=== PATIENT | male | born 1990 | race Caucasian/White ===

== ENCOUNTER 2024-03-26 21:32 | Emergency (ER) | payer MEDICAID, SELFPAY ==
[2024-03-26 21:40] VITALS: PULSE 93; O2SAT 96; BMI 26.9
[2024-03-26 21:44] VITALS: BP 142/89; PULSE 78; RESP 20; TEMP 36.6; O2SAT 97
--- NOTE | 2024-03-26 22:15 | PD.EDRME ---
Rapid Medical Screening Exam RME Arrival date/time: 03/26/24 21:32 Chief Complaint: Fall Time Seen by Provider: 03/26/24 22:15 Vital signs: Vital Signs Temperature 97.8 F 03/26/24 21:44 Pulse Rate 78 03/26/24 21:44 Respiratory Rate 20 03/26/24 21:44 Blood Pressure 142/89 H 03/26/24 21:44 Pulse Oximetry (%) 97 03/26/24 21:44 Oxygen Delivery Method Room Air 03/26/24 21:44 RME Narrative: 34yo male with a history of seizures BIBA from home presents to the ED for a ground-level fall. Per EMS, patient hit a corner when he was in his wheelchair and fell out of his wheelchair. EMS states the fall was witnessed and the patient hit his head, but they denied any LOC. Patient complains of all over body pain. Of note, the patient is on hospice.
[2024-03-26] MEDS: LIDOCAINE 1% W/EPI 1:100K 20 ML VIAL INFL (22:54)
--- NOTE | 2024-03-26 23:35 | PD.RESPROC ---
Procedures Procedure Date / Time 03/26/24 2335 Procedure Narrative Procedure Narrative: Laceration Repair Procedure Note Procedure Name: Laceration Repair Indication: Reduce risk of infection Location: Right eyebrow Pre-Procedure Diagnosis: Laceration Post-Procedure Diagnosis: Repaired Laceration Informed consent was obtained before procedure started. PROCEDURE: The appropriate timeout was taken. The area was prepped and draped in the usual sterile fashion. Local anesthesia was achieved using 7cc of Xylocaine/Lidocaine 1%. The wound was copiously irrigated. Four 3-0 Nylon interrupted sutures were placed. Estimated blood loss was less than 0.5 mL. A dressing was applied to the area and anticipatory guidance, as well as standard post-procedure care, was explained. Return precautions are given.?The patient tolerated the procedure well without complications. Follow-up visit set for suture removal and evaluation of the laceration. Plan of care discussed with attending Richy Jimenez M.D. PGY2
--- NOTE | 2024-03-26 23:40 | EDNOTE_ITS ---
ED General RME/HPI General Chief complaint: Fall Stated complaint: FALL Time Seen by Provider: 03/26/24 22:15 Arrival date/time: 03/26/24 21:32 RME / HPI RME / HPI narrative: Chief complaint: RT eyebrow laceration 04/14 Ground level fall HPI: Patient is a 34yo male with a history of seizures BIBA from home presents to the ED for a ground-level fall. Per EMS, patient hit a corner when he was in his wheelchair and fell out of his wheelchair. EMS states the fall was witnessed and the patient hit his head, but they denied any LOC. Patient complains of all over body pain. Of note, the patient is on hospice. Allergies: NKFDA Social history: Tobacco?Use:?Denies ETOH?Use:?Denies Drug?Note:?Denies Social?History: Lives at home, on hospice Related Data Allergies Allergy/AdvReac Type Severity Reaction Status Date / Time amlodipine Allergy Verified 09/14/22 10:38 risperidone [From Risperdal] Allergy Verified 09/14/22 10:38 Review of Systems Review of Systems Narrative Review of Systems: GENERAL: Denies fevers/chills or diaphoresis. HEENT: Denies headache or visual/hearing changes. Denies nasal discharge. NEURO: Denies unusual weakness or difficulty speaking. CARDIO: Denies chest pain or palpitations. PULM: Denies SOB, coughing, or wheezing. GI: Denies abdominal pain, N/V/C/D. Reports having BMs URO: Denies burning/itching/pain/urinary changes. MSK/EXT/SKIN: Right eyebrow laceration and multiple other small scratches from GLF PSYCH: Cooperative, pleasant mood & affect. The rest of the review of systems is otherwise negative. ED Exam Narrative Physical exam: Constitutional Alert, oriented x3 and comfortable HEENT Vision grossly intact. Patent nares. Trachea midline. Respiratory Chest normal on inspection and clear to auscultation bilaterally. Cardiovascular S1 and S2 audible, RRR. No murmurs or carotid bruit. No gross JVD. Abdominal Soft and non tender to palpation in all quadrants. BS + Genitourinary No bladder tenderness, no flank pain. Normal to palpation. Musculoskeletal No LE edema. Neurological Extremity motor and sensation grossly intact. Skin RT brow superficial laceration 2cm, sanguinous discharge. Small lacerations without any bleeding noted on hands. Psychiatric Patient has a good affect, is cooperative. Course Course Course Narrative: S/p RT eyebrow laceration repair Quality Measures none Orders Category Date Time Status Irrigate Wound NOW Care 03/26/24 22:19 Completed Set Up Suture Tray STAT Care 03/26/24 22:20 Completed Lidocaine 1% W/Epi 1:100K 20Ml [Xylocaine 1% w/Epi 1: Med 03/26/24 22:20 Discontinued 100K 20 ml] 20 ml INFL X1 ONE Vital Signs Vital signs: Vital Signs Temperature 97.8 F 03/26/24 21:44 Pulse Rate 78 03/26/24 21:44 Respiratory Rate 20 03/26/24 21:44 Blood Pressure 142/89 H 03/26/24 21:44 Pulse Oximetry (%) 97 03/26/24 21:44 Oxygen Delivery Method Room Air 03/26/24 21:44 Procedures -ED Laceration Laceration 1: Site: face Side (If applicable): right Size (cm): 2 Description: linear and clean Depth: simple, single layer Local Anesthetic: lidocaine 1% Amount of anesthesia used (mL): 7 Skin layer closed with: nylon Size (cm): 3-0 Technique: simple, interrupted MDM Patient data External records reviewed:: None Clinical information provided by:: patient and medical assembler Social determinants that could affect healthcare access:: none Patient has the following chronic illnesses:: On Hospice, 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 How is presenting disease/condition affected by chronic disease/condition?: caused by Evaluation data The following diagnostics were reviewed and interpreted by me:: lab results, radiology exam(s) and EKG tracing(s) Lab and/or radiology exams considered but not ordered:: CT Interpretation Summary: Lacerations secondary to GLMF from wheelchair Medications Medications considered but not ordered:: Morphine Medication administrations:: Medication Administration History Discontinued Medications Lidocaine/Epinephrine (Lidocaine 1% W/Epi 1:100k 20 Ml Vial) 20 ml INFL X1 ONE Stop: 03/26/24 22:21 Last Admin: 03/26/24 22:54 Dose: 20 ml Documented By: CB Given during procedure Consultations Consultation(s) initiated? (list below): No Consultation #1 (Physician, Specialty, Details): None Diagnosis Differential Diagnosis ED Complaint MDM: syncope Most likely diagnosis given after review of the tests above:: ground level fall from wheelchair causing RT brow laceration Admission Indicated Admission indicated?: not indicated Explain why admission is indicated or not indicated:: Repaired with sutures Admission Request Was there a request for admission?: No Disposition Plan Disposition Plan: Discharge Discharge Attestation Discharge Attestation: The patient and all family members were given an opportunity to ask questions and understood the discharge instructions. Discharge instructions specifically effects, indications for sooner follow up or return to the emergency department, and the expected course of current diagnosis. Patient condition: Stable Medical Decision Making MDM Narrative MDM Narrative: Patient is a 34 year old male on hospice, who had a GLMF from a wheelchair and lacerated his right eyebrow. The laceration was repaired with sutures (3-0 nylon) with care instructions provided. Differential Diagnosis Differential Diagnosis: syncope Discharge Plan Plan Patient Disposition: HOME (Self Care) Patient condition on transfer: Stable Problem List Clinical Impression: Laceration Patient/Caregiver Discharge Instructions Discharge Activity: resume usual activities Education Materials: ED Laceration Face Suture or Tape ... Additional Instructions: Return to the emergency department for any worsening symptoms, any concerns. Print Language: [place] Stand Alone Forms: Jenny Award Info., Patient Portal Info Letter
[2024-03-26 23:57] VITALS: BP 138/76; PULSE 72; RESP 18; TEMP 36.8; O2SAT 98
== END 2024-03-26 23:58 | disposition home or self-care (01) ==
LOC: SERX 03-27 00:31
PROVIDERS: Emergency Provider Emergency Medicine
DX: S01.111A Laceration without foreign body of right eyelid and periocular area, initial encounter (principal); W05.0XXA Fall from non-moving wheelchair, initial encounter
CPT/HCPCS: 12011; 99283; J3490